=== PATIENT | male | born 1990 | race Caucasian/White ===

== ENCOUNTER 2017-02-06 23:22 | Emergency (ER) | payer OTHER ==
[2017-02-06 23:50] VITALS: BP 130/83; PULSE 99; TEMP 98.9; BMI 30.7
--- NOTE | 2017-02-07 00:04 | PDOC ---
History of Present Illness <Rah Leos - Last Filed: 02/07/17 00:23> - General History Source: Patient Exam Limitations: No Limitations - History of Present Illness Initial Comments: 02/07/17 00:31 The patient is a 27 year old male presenting with his , with no significant past medical history, who presents to the emergency department with fever, chills, cough and headache for the past 2 weeks. 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 He describes his cough as dry in nature. He describes his headache as ranging from mild to moderate, without radiation or modifying factors. The patient denies chest pain, shortness of breath, and dizziness. Denies nausea , vomit, diarrhea and constipation. Denies dysuria, frequency, urgency and hematuria. Allergies: None Past surgical history: None reported Social history: No alcohol, tobacco or drug use reported <David Mireles - Last Filed: 02/07/17 00:32> - General Chief Complaint: Cold Symptoms Stated Complaint: HEAD/NECK PROBLEM Time Seen by Provider: 02/06/17 23:40 Past History - Suicide/Smoking/Psychosocial Hx Smoking History: Unknown if ever smoked Have you smoked in the past 12 months: No Information on smoking cessation initiated: No Hx Alcohol Use: No Drug/Substance Use Hx: No <Rah Leos - Last Filed: 02/07/17 00:23> <David Mireles - Last Filed: 02/07/17 00:32> - Past Medical History Allergies/Adverse Reactions: Allergies Allergy/AdvReac Type Severity Reaction Status Date / Time No Known Allergies Allergy Verified 02/06/17 23:50 Home Medications: Ambulatory Orders Acetaminophen [Tylenol] 650 mg PO PRN 02/07/17 Albuterol Sulfate Inhaler - [Ventolin HFA Inhaler -] 1 - 2 inh PO QID #1 inhaler 02/07/17 Azithromycin [Zithromax -] 250 mg PO UTDICT #6 tab 02/07/17 Review of Systems - Review of Systems Able to Perform ROS?: Yes Comments:: 02/07/17 00:31 GENERAL/CONSTITUTIONAL: (+) Fever and chills. No weakness. HEAD, EYES, EARS, NOSE AND THROAT: No change in vision. No ear pain or discharge. No sore throat.- CARDIOVASCULAR: No chest pain or shortness of breath RESPIRATORY: (+) Cough. No wheezing, or hemoptysis. GASTROINTESTINAL: No nausea, vomiting, diarrhea or constipation. GENITOURINARY: No dysuria, frequency, or change in urination. MUSCULOSKELETAL: No joint or muscle swelling or pain. No neck or back pain. SKIN: No rash NEUROLOGIC: (+) Headache. No vertigo, loss of consciousness, or change in strength/sensation. ENDOCRINE: No increased thirst. No abnormal weight change HEMATOLOGIC/LYMPHATIC: No anemia, easy bleeding, or history of blood clots. ALLERGIC/IMMUNOLOGIC: No hives or skin allergy. <David Mireles - Last Filed: 02/07/17 00:32> *Physical Exam - Vital Signs Last Vital Signs Temp Pulse Resp BP Pulse Ox 98.9 F 99 H 20 130/83 96 02/06/17 23:49 02/06/17 23:49 02/06/17 23:49 02/06/17 23:49 02/06/17 23:49 <Rah Leos - Last Filed: 02/07/17 00:23> - Vital Signs Last Vital Signs Temp Pulse Resp BP Pulse Ox 98.9 F 99 H 20 130/83 96 02/06/17 23:49 02/06/17 23:49 02/06/17 23:49 02/06/17 23:49 02/06/17 23:49 - Physical Exam Comments: 02/07/17 00:32 GENERAL: Awake, alert, and fully oriented, in no acute distress HEAD: No signs of trauma, normocephalic, atraumatic EYES: PERRLA, EOMI, sclera anicteric, conjunctiva clear ENT: Auricles normal inspection, hearing grossly normal, nares patent, oropharynx clear without exudates. Moist mucosa NECK: Normal ROM, supple, no lymphadenopathy, JVD, or masses LUNGS: No distress, speaks full sentences, clear to auscultation bilaterally HEART: Regular rate and rhythm, normal S1 and S2, no murmurs, rubs or gallops, peripheral pulses normal and equal bilaterally. ABDOMEN: Soft, nontender, normoactive bowel sounds. No guarding, no rebound. No masses EXTREMITIES : Normal inspection, Normal range of motion, no edema. No clubbing or cyanosis. NEUROLOGICAL: Cranial nerves II through XII grossly intact. Normal speech, normal gait, no focal sensorimotor deficits SKIN: Warm, Dry, normal turgor, no rashes or lesions noted. <David Mireles - Last Filed: 02/07/17 00:32> ED Treatment Course - Medications Given in the ED: ED Medications Discontinued Medications Generic Name Dose Route Start Last Admin Trade Name Freq PRN Reason Stop Dose Admin Albuterol Sulfate 1 amp 02/07/17 00:11 02/07/17 00:17 Ventolin 0.083% Nebulizer Soln - NEB 02/07/17 00:12 1 amp ONCE ONE Administration Azithromycin 500 mg 02/07/17 00:11 02/07/17 00:17 Zithromax - PO 02/07/17 00:12 500 mg ONCE ONE Administration <David Mireles - Last Filed: 02/07/17 00:32> *DC/Admit/Observation/Transfer - Discharge Dispostion Admit: No - Attestations Physician Attestion: 02/07/17 00:04 I, Dr. Rah Leos, attest that this document has been prepared under my direction and personally reviewed by me in its entirety. I further attest, that it accurately reflects all work, treatment, procedures and medical decision -making performed by me. <Rah Leos - Last Filed: 02/07/17 00:23> - Attestations Scribe Attestion: 02/07/17 00:32 Documentation prepared by David Mireles, acting as medical record librarian for Rah Leos MD <David Mireles - Last Filed: 02/07/17 00:32> Diagnosis at time of Disposition: Bronchitis - Discharge Dispostion Disposition: HOME Condition at time of disposition: Good - Prescriptions Prescriptions: Albuterol Sulfate Inhaler - [Ventolin HFA Inhaler -] 1 - 2 inh PO QID #1 inhaler Azithromycin [Zithromax -] 250 mg PO UTDICT #6 tab - Patient Instructions Printed Discharge Instructions: DI for Acute Bronchitis Additional Instructions: Sorry this is happening for you now. Inhaler for cough. Tylenol for fever. Zithromax for five days. Return to us if worse. See you doctor after you finish the antibiotics. Marco A- Dr. Rah Leos
[2017-02-07] MEDS ORDERED: ALBUTEROL SO4 0.083% IH SOL 2.5 MG/3 ML VIAL.NEB. NEB ONE (00:11)
[2017-02-07] MEDS ORDERED: AZITHROMYCIN 250 MG TABLET PO ONE (00:11)
[2017-02-07] MEDS ORDERED: ALBUTEROL SO4 2.5/IPRATROPIUM 0.5 INH SOL 3 ML VIAL.NEB. NEB ONE (00:14)
[2017-02-07] MEDS ORDERED: AZITHROMYCIN 250 MG TABLET ONE (00:14)
== END 2017-02-07 00:38 | disposition home or self-care (01) ==
LOC: JER 23:22
PROC: 3E0F7GC Introduction of Other Therapeutic Substance into Respiratory Tract, Via Natural or Artificial Opening (ICD-10-PCS; principal; 2017-02-06)
DX: J20.9 Acute bronchitis, unspecified (principal)
CPT/HCPCS: 99282-25